=== PATIENT | female | born 1990 | race Caucasian/White ===

== ENCOUNTER 2017-05-29 14:28 | Emergency (ER) | payer SELFPAY ==
[~2017-05-29] VITALS: Ht 160 cm; Wt 48.0 kg
[2017-05-29 14:41] VITALS: BP 130/91; PULSE 83; RESP 18; TEMP 98.7; O2SAT 98
--- NOTE | 2017-05-29 15:14 | PD ---
Physical Exam Date Seen by Provider: May 29, 2017 Time Seen by Provider: 15:11 Narrative 26 yr old female here with c/o right eye pain for 4 days. She says she lost vision 4 days ago. She tells me she had some type of infection 8 months ago that keeps coming back. Rates her pain as 15/10. She was being treated by her PCP Dr. Taylor for this eye infection. She has not seen an assistant produce manager. Data Data Last Documented VS Vital Signs Date Time Temp Pulse Resp B/P (MAP) Pulse Ox O2 Delivery O2 Flow Rate FiO2 05/29/17 14:41 98.7 83 18 130/91 (104) 98 Room Air [facility] Medical Record Reviewed: Yes Supervised Visit with JANET: No Scripts Unable to Obtain Active Prescriptions or Reported Meds Condition: Mary Linares May 29, 2017 15:13
--- NOTE | 2017-05-29 17:25 | PD ---
HPI . right eye vision loss Chief Complaint: Eye Problems/Injury Time Seen by Provider: 17:25 Travel History International Travel<30 days: No Contact w/Intl Traveler<30days: No Traveled to known affect area: No History of Present Illness HPI 26-year-old female here with complaints of loss of vision in her right eye over the past 4 days. Patient tells me that she has had an eye infection for approximately 8 months intermittently. She tells me she was treated on an outpatient basis by her primary care provider who prescribed her the strongest eyedrops on the market. Patient says that she was supposed to get some refills on this medication, however she never did that. She was never referred to an flattening machine operator. Right eye vision loss over the past 4 days. She also complains of pain in the eye. She does have the ability to perceive light, but tells me she sees no other objects. [facility] Social History Alcohol Use: No Tobacco Use: Yes Substance Use: Yes Allergies-Medications (Allergen,Severity, Reaction): Coded Allergies: Unable to Assess (Unverified Allergy, Unknown, 05/12/17) Uncoded Allergies: fake metal (Allergy, Severe, 05/29/17) hives Reported Meds & Prescriptions Reported Meds & Active Scripts Active Active Prescriptions or Reported Medications Unobtainable Review of Systems General / Constitutional: No: Fever Eyes: Positive: Photophobia, Blindness, No: Visual changes HENT: No: Headaches Cardiovascular: No: Chest Pain or Discomfort Respiratory: No: Shortness of Breath Gastrointestinal: No: Abdominal Pain Genitourinary: No: Dysuria Musculoskeletal: No: Pain Skin: No Rash Neurologic: No: Weakness Psychiatric: No: Depression Endocrine: No: Polydipsia Hematologic/Lymphatic: No: Easy Bruising Physical Exam Narrative GENERAL: AAO x 3, no acute distress, Well-nourished, well-developed patient. SKIN: Warm and dry. No visible rashes or bruising. HEAD: Normocephalic and atraumatic. EYES: No scleral icterus. No injection or drainage. left eye EOM intact, PERRL, Right eye, cloudy, not able to visualize eye landmarks. ENT: No nasal drainage noted. Mucous membranes pink. Airway patent. NECK: Supple, trachea midline. No JVD. CARDIOVASCULAR: Regular rate and rhythm without murmurs, gallops, or rubs. RESPIRATORY: Breath sounds equal bilaterally. No accessory muscle use. No rhonchi or rales. GASTROINTESTINAL: visual inspection normal EXTREMITIES: No cyanosis or edema. BACK: No obvious deformity. NEURO: CN II-12 intact, PSYCH: AAO x 3, normal affect. Data Data Last Documented VS Vital Signs Date Time Temp Pulse Resp B/P (MAP) Pulse Ox O2 Delivery O2 Flow Rate FiO2 05/29/17 17:30 79 18 05/29/17 17:30 98.3 105/77 (86) 99 Room Air Orders Orders Complete Blood Count With Diff (05/29/17 17:38) Basic Metabolic Panel (Bmp) (05/29/17 17:38) Act Partial Throm Time (Ptt) (05/29/17 17:38) Prothrombin Time / Inr (Pt) (05/29/17 17:38) Drug Screen, Random Urine (05/29/17 17:38) Proparacaine 0.5% Opth Soln (Alcaine 0.5 (05/29/17 18:00) MDM Medical Decision Making Medical Screen Exam Complete: Yes Emergency Medical Condition: Yes Medical Record Reviewed: Yes Differential Diagnosis right eye pain, endophthalmitis, less likely HSV Narrative Course 26 yr old female here with c/o right eye vision loss for 4 days with infection over [address] Burns was called in to assess the patient. She has spoken to Dr. Quan Torres. Recommendations: Proparacaine and collect swabs. vancomycin 50mg/ml fortified [id number] atropine bid doxy 100 BID 1816: Dr. Burns has discussed the case with pharmacy: she will resume care of this patient and provide disposition. Diagnosis Primary Impression: Endophthalmitis Qualified Codes: H44.001 - Unspecified purulent endophthalmitis, right eye Scripts Unable to Obtain Active Prescriptions or Reported Meds Condition: Stable Mary Jolley May 29, 2017 17:25
[2017-05-29 17:30] VITALS: BP 105/77; PULSE 83; RESP 18; TEMP 98.3; O2SAT 99
[2017-05-29] MEDS ORDERED: PROPARACAINE HCL 0.5% OPHT SOLN 15 ML BTL EACH EYE ONE (18:00)
[2017-05-29] MEDS ORDERED: DOXY100C PO (18:34)
--- NOTE | 2017-05-29 18:34 | PD ---
HPI Chief Complaint: Eye Problems/Injury Time Seen by Provider: 17:25 Travel History International Travel<30 days: No Contact w/Intl Traveler<30days: No Traveled to known affect area: No History of Present Illness HPI 50-year-old female came to the emergency room with right eye redness and loss of vision. Patient says this started 4 days ago and has been going on like that since then. Today she got a ride to bring her to the emergency room and is here to be seen. Patient says that her right eye has been bothering her on and off for past 8 month and she has been seeing her primary care Dr. Taylor for that. He has given her eyedrops which seems to help take care of the situation but then seems to come back again. However this time it was the worst. She has not seen an real estate administrator as per the patient. Patient says she used to be a drug addict but now she only smokes marijuana. Vital signs were stable. [facility] Past Medical History Narrative Medical List of her past medical, surgical, social and family history was reviewed from the nursing note. Medical History: Denies Significant Hx ?: Not LMP: 6 weeks ago Past Surgical History Surgical History: No Previous Surgery Social History Alcohol Use: No Tobacco Use: Yes Substance Use: Yes Allergies-Medications (Allergen,Severity, Reaction): Coded Allergies: Unable to Assess (Unverified Allergy, Unknown, 05/12/17) Uncoded Allergies: fake metal (Allergy, Severe, 05/29/17) hives Comments List of her allergies reviewed from the nursing note. Reported Meds & Prescriptions Reported Meds & Active Scripts Active Doxycycline Hyclate 100 Mg Cap 100 Mg PO BID 10 Days Narrative Medication List of her home medications reviewed from the nursing note. Review of Systems Except as stated in HPI: all other systems reviewed are Neg Physical Exam Narrative GENERAL: Awake, alert, mild distress, anxious SKIN: Focused skin assessment warm/dry. Multiple scabs and circular abrasions mostly on her upper and lower extremities and some on her face. HEAD: Atraumatic. Normocephalic. EYES: Left eye pupil is round and reactive to light. No scleral icterus. Right by significant scleral injection and complete opacity of the cornea. There is a central large deep ulcer. No posterior structures be on the cornea is recognizable due to the opacity. Patient has vision to light perception only. Left eye appears to be normal. ENT: No nasal bleeding or discharge. Mucous membranes pink and moist. NECK: Trachea midline. No JVD. CARDIOVASCULAR: Regular rate and rhythm. No murmur appreciated. RESPIRATORY: No accessory muscle use. Clear to auscultation. Breath sounds equal bilaterally. GASTROINTESTINAL: Abdomen soft, non-tender, nondistended. Hepatic and splenic margins not palpable. MUSCULOSKELETAL: No obvious deformities. No clubbing. No cyanosis. No edema. NEUROLOGICAL: Awake and alert. No obvious cranial nerve deficits. Motor grossly within normal limits. Normal speech. PSYCHIATRIC: Appropriate mood and affect; insight and judgment normal. Data Data Last Documented VS Vital Signs Date Time Temp Pulse Resp B/P (MAP) Pulse Ox O2 Delivery O2 Flow Rate FiO2 05/29/17 19:13 05/29/17 17:30 79 18 05/29/17 17:30 98.3 99 Room Air Orders Orders Complete Blood Count With Diff (05/29/17 17:38) Basic Metabolic Panel (Bmp) (05/29/17 17:38) Drug Screen, Random Urine (05/29/17 17:38) Proparacaine 0.5% Opth Soln (Alcaine 0.5 (05/29/17 18:00) Non-Formulary Drug (05/29/17 19:30) Atropine 1% Opth Soln (Isopto Atropine 1 (05/29/17 21:00) Non-Formulary Drug (05/29/17 20:00) Doxycycline (Vibramycin) (05/29/17 18:45) Wound Culture And Gram Stain (05/29/17 19:17) Wound Culture And Gram Stain (05/29/17 18:20) Labs Laboratory Tests Test 05/29/17 17:45 05/29/17 18:08 Urine Opiates Screen POS Urine Barbiturates Screen NEG Urine Amphetamines Screen NEG Urine Benzodiazepines Screen NEG Urine Cocaine Screen POS Urine Cannabinoids Screen POS White Blood Count 10.2 TH/MM3 Red Blood Count 5.13 MIL/MM3 Hemoglobin 13.6 GM/DL Hematocrit 41.4 % Mean Corpuscular Volume 80.7 FL Mean Corpuscular Hemoglobin 26.5 PG Mean Corpuscular Hemoglobin Concent 32.8 % Red Cell Distribution Width 17.4 % Platelet Count 236 TH/MM3 Mean Platelet Volume 7.2 FL Neutrophils (%) (Auto) 63.4 % Lymphocytes (%) (Auto) 29.3 % Monocytes (%) (Auto) 5.8 % Eosinophils (%) (Auto) 0.6 % Basophils (%) (Auto) 0.9 % Neutrophils # (Auto) 6.5 TH/MM3 Lymphocytes # (Auto) 3.0 TH/MM3 Monocytes # (Auto) 0.6 TH/MM3 Eosinophils # (Auto) 0.1 TH/MM3 Basophils # (Auto) 0.1 TH/MM3 CBC Comment DIFF FINAL Differential Comment Blood Urea Nitrogen 13 MG/DL Creatinine 0.87 MG/DL Random Glucose 166 MG/DL Calcium Level 9.2 MG/DL Sodium Level 135 MEQ/L Potassium Level 4.9 MEQ/L Chloride Level 101 MEQ/L Carbon Dioxide Level 28.6 MEQ/L Anion Gap 5 MEQ/L Estimat Glomerular Filtration Rate 80 ML/MIN MDM Medical Decision Making Medical Screen Exam Complete: Yes Emergency Medical Condition: Yes Medical Record Reviewed: Yes Differential Diagnosis Endophthalmitis, large corneal ulceration with hypopyon Narrative Course 6:30 PM my suspicion clinically is endophthalmitis. I discussed the case with Dr. Torres who is television program director for ophthalmology. As per her patient could either be admitted or discharged home. If she is discharged home she will follow up with the patient in her office tomorrow morning. In either case she will have to be started on eyedrops which as per her recommendation was fortified vancomycin 25 mg per mL every 30 minutes, 45 tobramycin 15 mg per mL 1 drop every 30 minutes, atropine 1% eye drop twice a day and doxycycline by mouth 100 mg twice a day. The pharmacy will prepare these eyedrops and send it. Patient will get her first drop here in the emergency room. She wishes to leave and see the real estate administrator in her office. I'll give her the instructions. Procedures EKG Prior to Arrival: No Diagnosis Primary Impression: Endophthalmitis Qualified Codes: H44.001 - Unspecified purulent endophthalmitis, right eye Referrals: Lili Torres MD 1 day Additional Instructions: Follow-up with Dr. Torres in her office tomorrow at 9 in the morning. Her name and office address has been given to you in this discharge instruction sheet. Use the eyedrops vancomycin and tobramycin that are given to you from the ER every [address] Torres. Use the atropine eyedrops twice a day until you see Dr. Torres one drop the affected eye. Take the prescription medication as per the direction Med/Other Pt SpecificInfo: Prescription(s) given Scripts Doxycycline Hyclate (Doxycycline Hyclate) 100 Mg Cap 100 MG PO BID for Infection for 10 Days, CAP 0 Refills Prov: Karolyn Pedersen MD 05/29/17 Disposition: 01 DISCHARGE HOME Condition: Stable Karolyn Pedersen MD May 29, 2017 18:34
[2017-05-29] MEDS ORDERED: DOXYCYCLINE HYCLATE 100 MG CAP PO ONE (18:45)
[2017-05-29 19:29] LABS: AUTOMATED NEUTROPHIL # 6.5 TH/MM3 (1.8-7.7); BASOPHIL # 0.1 TH/MM3 (0-0.2); BASOPHIL % 0.9 % (0.0-2.0); EOSINOPHIL # 0.1 TH/MM3 (0-0.4); EOSINOPHIL % 0.6 % (0.0-4.0); HEMATOCRIT 41.4 % (35.0-46.0); HEMO FLAGS DIFF FINAL; LYMPH % 29.3 % (9.0-44.0); MEAN CELL VOLUME 80.7 FL (80.0-100.0); MEAN CORPUSCULAR HEMOGLOBIN 26.5 PG (27.0-34.0); MEAN CORPUSCULAR HGB CONC 32.8 % (32.0-36.0); MONO % 5.8 % (0.0-8.0); NEUT % 63.4 % (16.0-70.0); PLATELET COUNT 236 TH/MM3 (150-450); RED BLOOD COUNT 5.13 MIL/MM3 (4.00-5.30); RED CELL DISTRIBUTION WIDTH 17.4 % (11.6-17.2); WHITE BLOOD COUNT 10.2 TH/MM3 (4.0-11.0)
[2017-05-29] MEDS ORDERED: [UNRECOGNIZED DRUG - OTHER] RIGHT EYE SCH (19:30)
[2017-05-29] MEDS ORDERED: VANCOMYCIN RIGHT EYE SCH (19:30)
[2017-05-29 19:43] LABS: BICARBONATE 28.6 MEQ/L (21.0-32.0); POTASSIUM 4.9 MEQ/L (3.5-5.1)
[2017-05-29] MEDS ORDERED: TOBRAMYCIN RIGHT EYE SCH (20:00)
[2017-05-29] MEDS ORDERED: ATROPINE SULFATE 1% OPHT SOLN 5 ML BTL RIGHT EYE SCH (21:00)
[2017-06-26] MEDS ORDERED: CIPR0.3S2 RIGHT EYE (11:27)
== END 2017-05-29 19:13 | disposition home or self-care (01) ==
LOC: NEPD 14:28
DX: H44.001 Unspecified purulent endophthalmitis, right eye (principal); Z72.0 Tobacco use
CPT/HCPCS: 80048; 80307; 85025; 87070; 87205; 99283